=== PATIENT | female | born 1980 | race Caucasian/White ===

== ENCOUNTER 2023-01-12 05:31 | Emergency (ER) | payer OTHER, SELFPAY ==
--- NOTE | ~2023-01-12 | CT_ITS ---
CT of the Abdomen and Pelvis: Indication: Abdominal pain Technique: 2.5 mm axial scans were obtained through the abdomen and pelvis following intravenous adm inistration of 100 cc of Omnipaque 350. Dose reduction technique was used on this scan by utilizing a utomated exposure control and iterative reconstruction technique. The dose-length product (DLP) was 1 573.55 mGy-cm. Findings: Scans through the lung bases are unremarkable. The liver, spleen, pancreas, adrenals and kidneys are within normal limits. Cholecystectomy clips are present. No evidence of aortic aneurysm. No lymphadenopathy. No bowel obstruction or bowel wall thickening. There is no evidence to suggest acute appendicitis. Images through the pelvis were performed. Urinary bladder unremarkable. No adnexal mass seen. No asci sierra. Patient is post hysterectomy. Impression: No significant abnormalities seen. Reviewed, dictated and finalized at [facility]. Impression: No significant abnormalities seen.
[2023-01-12 05:34] VITALS: BP 155/86; PULSE 88; RESP 13; TEMP 36.2; O2SAT 100
--- NOTE | 2023-01-12 06:03 | ED.GENADULT ---
HPI - General Adult General Chief complaint: Abdominal Pain Stated complaint: stomach pain Time Seen by Provider: 01/12/23 05:55 History of Present Illness HPI narrative: 42 year old female history of cholecystectomy, hysterectomy presented with left lower quadrant abdominal pain. Per patient, for the past three days she has been having left lower quadrant abdominal, non radiating, associated with nausea and non bilious non bloody emesis. Denied dysuria, hematuria, fevers/chills, chest pain, shortness of breath. Past Medical History: HTN Past Surgical History: hysterectomy, cholecystectomy Medications: denied Allergies: no known drug allergies Related Data Allergies Allergy/AdvReac Type Severity Reaction Status Date / Time No Known Allergies Allergy Unverified 01/02/19 01:00 Review of Systems Review of Systems: See HPI Exam Narrative: General: Alert, calm and cooperative, no acute distress, phonating, sitting comfortably during visit HEENT: Pupils equal round and reactive to light, extra ocular movements intact, no conjunctival injection, head atraumatic, neck supple without meningismus Cardiovascular: Regular rate and rhythm, no visible jugular venous distension Respiratory: Lungs clear to auscultation bilaterally, no wheezing/rales/rhonchi Abdominal: soft, non-tender, non-distended, no guarding, no rebound/peritoneal signs, no costovertebral tenderness to palpation Back: no midline tenderness to palpation, no step offs Extremities: No edema, palpable peripheral pulses, warm, well perfused, no tenderness to bilateral calves Neurological: Alert, moving all extremities symmetrically, ambulating without deficit Course Vital Signs Vital signs: Vital Signs Temperature 97.2 F L 01/12/23 05:34 Pulse Rate 88 01/12/23 05:34 Respiratory Rate 13 01/12/23 05:34 Blood Pressure 155/86 H 01/12/23 05:34 Pulse Oximetry 100 01/12/23 05:34 Oxygen Delivery Room Air 01/12/23 05:34 Temperature 97.2 F L 01/12/23 05:34 Pulse Rate 88 01/12/23 05:34 Respiratory Rate 13 01/12/23 05:34 Blood Pressure 155/86 H 01/12/23 05:34 Pulse Oximetry 100 01/12/23 05:34 Oxygen Delivery Room Air 01/12/23 05:34 Medical Decision Making [facility] Narrative Medical decision making narrative: 42 year old female history of hysterectomy, cholecystectomy presented with left lower quadrant abdominal pain. Physical exam benign, abdomen soft and non tender vitals stable. Differential diagnosis includes but not limited to: SBO vs Diverticulitis vs pyelonephritis vs nephrolithiasis. Bloodwork analysis and CT abd/pelv ordered for further evaluation. Patient signed out to incoming provider. Current pending labs, imaging communicated. Vital Signs Vital Signs: Vital Signs Temperature 97.2 F L 01/12/23 05:34 Pulse Rate 88 01/12/23 05:34 Respiratory Rate 13 01/12/23 05:34 Blood Pressure 155/86 H 01/12/23 05:34 Pulse Oximetry 100 01/12/23 05:34 Oxygen Delivery Room Air 01/12/23 05:34 Temperature 97.2 F L 01/12/23 05:34 Pulse Rate 88 01/12/23 05:34 Respiratory Rate 13 01/12/23 05:34 Blood Pressure 155/86 H 01/12/23 05:34 Pulse Oximetry 100 01/12/23 05:34 Oxygen Delivery Room Air 01/12/23 05:34 Discharge Plan Discharge Instructions: Antibiotic Form Follow-up/Referrals: PHYSICIAN,DAIRY HUSBANDRY WORKER [Primary Care Provider] -
[2023-01-12] MEDS: ACETAMINOPHEN 500 MG TABLET 1000 MG PO (06:17)
[2023-01-12 06:18] LABS: Basophils Absolute Auto 0.1 K/mm3 (0.0-0.1); Basophils Percent Auto 0.4 % (0.2-1.2); Eosinophils Absolute Auto 0.1 K/mm3 (0-0.3); Eosinophils Percent Auto 0.9 % (0-4.4); Hematocrit 43.9 % (37.0-47.0); Hemoglobin 14.8 g/dL (12.0-15.0); Immature Granulocyte Absolute 0.05 K/mm3 (0.00-0.031); Immature Granulocyte Percent A 0.4 % (0-0.5); Lymphocytes Percent Auto 14.2 % (18.3-44.2); Mean Corpuscular HGB Conc 33.7 g/dl (32-36); Mean Corpuscular Hemoglobin 30.1 pg (26-34); Mean Corpuscular Volume 89.2 fl (80-100); Monocytes Absolute Auto 0.6 K/mm3 (0.1-0.6); Monocytes Percent Auto 4.3 % (2.6-8.5); Neutrophils Absolute Auto 10.6 K/mm3 (1.3-6.7); Neutrophils Percent Auto 79.8 % (45.5-73.1); Platelet Count Result 278 k/mm3 (150-375); Red Blood Count 4.92 M/mm3 (4.2-5.4); Red Cell Distribution Width 12.6 % (11.5-14.5); White Blood Count 13.3 K/mm3 (4.5-10.0)
[2023-01-12] MEDS: MAG HYDROX/AL HYDROX/SIMETH 30 ML UDC PO (06:19)
[2023-01-12] MEDS: ONDANSETRON INJ 4 MG/2 ML VIAL IV PUSH (06:19)
[2023-01-12] MEDS: SODIUM CHLORIDE 0.9% IV 1,000 ML 999 ML IV CONT (06:19)
[2023-01-12 06:31] LABS: Alanine Aminotransferase 30 U/L (6-35); Alkaline Phosphatase 94 U/L (38-126); Anion Gap 7 mmol/L (8-16); Aspartate Amino Transferase 27 U/L (14-36); Bilirubin,Total 0.7 mg/dL (0.2-1.3); Blood Urea Nitrogen 9 mg/dL (7-17); Calcium 9.2 mg/dL (8.4-10.2); Carbon Dioxide 28 mmol/L (22-30); Chloride 104 mmol/L (98-107); Estimated CRCL calculation 110 ml/min; Estimated Glomerular Filt Rate > 60; Glucose 128 mg/dL (65-110); Potassium 3.4 mmol/L (3.4-5.0); Sodium 139 mmol/L (137-145)
[2023-01-12 06:48] LABS: Appearance Urine Clear (Clear); Bacteria Urine None Seen /hpf; Bilirubin Urine Negative (Negative); Blood Urine 3+ (Negative); Color Urine Yellow (Yellow); Glucose Urine UA Negative (Negative); Ketones Urine Negative (Negative); Leukocyte Esterase Ur Trace LEU/UL (Negative); Nitrate Urine Negative (Negative); Non Pathogenic Casts 0-2; Protein Urine Negative (Negative); Specific Grav Ur 1.008 (1.001-1.035); Squamous Epithelial Cell Urine Occasional /hpf (Few); Urobilinogen Urine 0.2 mg/dL (<2.0)
--- NOTE | 2023-01-12 06:57 | PC.NURSE ---
patient reports not wanting Toradol until she sees how she reacts to the other medications.
[2023-01-12 06:59] LABS: Add Urine Microscopic? YES
[2023-01-12 07:26] VITALS: BP 142/79; PULSE 73; RESP 16; O2SAT 95
--- NOTE | 2023-01-12 07:26 | PC.NURSE ---
Patient report received from CARMEN Joseph. All questions answered and care of patient assumed.
[2023-01-12 08:45] VITALS: BP 144/79; PULSE 87; RESP 16; O2SAT 98
== END 2023-01-12 08:47 | disposition home or self-care (01) ==
PROVIDERS: Emergency Medicine; Emergency Provider Emergency Medicine
DX: R10.32 Left lower quadrant pain (principal); I10 Essential (primary) hypertension; Z90.49 Acquired absence of other specified parts of digestive tract; Z90.710 Acquired absence of both cervix and uterus
CPT/HCPCS: 36415; 74177; 80048; 80076; 81001; 81025; 85025; 87086; 87088; 96361; 96374; 99284; A9270; J2405; J7030; Q9967

== ENCOUNTER 2023-01-14 08:16 | Observation (INO) | payer OTHER, SELFPAY ==
[2023-01-14] VITALS (25 sets, daily range): BP systolic 104–168; BP diastolic 54–91; PULSE 59–99; RESP 12–21; TEMP 36.6–36.9; O2SAT 92–100; BMI 43.4
--- NOTE | ~2023-01-14 | CT_ITS ---
EXAMINATION: CT abdomen pelvis w con DATE: 01/14/2023 10:28 INDICATION: Left lower quadrant abdominal pain TECHNIQUE: Computed tomography (CT) of the abdomen and pelvis was performed with 100 CC Omnipaque 350 intravenous contrast. Automated exposure control and iterative reconstruction technique were employe d. Exam dose: 1471.60 mGy-cm total exam DLP. COMPARISON: 01/12/2023 CT abdomen pelvis FINDINGS: The lung bases are clear. Heart size is normal. No pericardial or pleural effusion. Status post cholecystectomy. The liver, spleen, pancreas, bile ducts and pancreatic duct are normal. Normal morphology of the adrenal glands. 6 mm right renal cyst. Mild left nephromegaly and hydronephrosis and pelviectasis secondary to 5.3 x 4.3 x 5.6 mm very proxi mal left ureteral calculus at upper L3 level. No other urinary tract calculus. The urinary bladder is unremarkable. Status post hysterectomy. Normal caliber of the abdominal aorta. No intraperitoneal or retroperitoneal or pelvic mass lesion or adenopathy or ascites. Mild colonic diverticulosis; no CT evidence of diverticulitis. Normal appendix. Very small fat-containing umbilical hernia. No suspicious osteolytic or osteoblastic lesions. IMPRESSION: 5.6 mm proximal left ureteral calculus with mild left hydronephrosis and nephromegaly Normal appendix Mild colonic diverticulosis 6 mm right renal cyst Status post cholecystectomy Status post hysterectomy Reviewed, dictated and finalized at [facility] Reviewed, dictated and finalized at [facility]. IMPRESSION: 5.6 mm proximal left ureteral calculus with mild left hydronephros is and nephromegaly Normal appendix Mild colonic diverticulosis 6 mm right renal cyst Status post cholecystectomy Status post hysterectomy
--- NOTE | ~2023-01-14 | XR_ITS ---
XR retrograde pyelo w/stent LT DATE: 01/14/2023 14:03 INDICATION: Proximal left ureteral calculus TECHNIQUE: 66.0 seconds fluoroscopy time 37.61 mGy 4. Spot C-arm images COMPARISON: 01/14/2023 CT abdomen pelvis FINDINGS: Retrograde pyelogram reveals blunting of the calyces of the left kidney due to mild hydrone phrosis. A left internal urinary stent displaced, the proximal pigtail apparently in the region of left renal pelvis, distal pigtail overlying the urinary bladder on the left. IMPRESSION: Mild left hydronephrosis Placement of left internal urinary stent Reviewed, dictated and finalized at [facility] Reviewed, dictated and finalized at [facility].
[2023-01-14 08:50] LABS: Basophils Absolute Auto 0.1 K/mm3 (0.0-0.1); Basophils Percent Auto 0.3 % (0.2-1.2); Eosinophils Absolute Auto 0.1 K/mm3 (0-0.3); Eosinophils Percent Auto 0.3 % (0-4.4); Hematocrit 44.9 % (37.0-47.0); Hemoglobin 14.9 g/dL (12.0-15.0); Immature Granulocyte Absolute 0.08 K/mm3 (0.00-0.031); Immature Granulocyte Percent A 0.4 % (0-0.5); Lymphocytes Absolute Auto 1.66 K/mm3 (0.9-3.2); Lymphocytes Percent Auto 8.8 % (18.3-44.2); Mean Corpuscular HGB Conc 33.2 g/dl (32-36); Mean Corpuscular Hemoglobin 30.1 pg (26-34); Mean Corpuscular Volume 90.7 fl (80-100); Mean Platelet Volume 10.8 fl (7.4-10.4); Monocytes Absolute Auto 0.8 K/mm3 (0.1-0.6); Monocytes Percent Auto 4.3 % (2.6-8.5); Neutrophils Absolute Auto 16.2 K/mm3 (1.3-6.7); Neutrophils Percent Auto 85.9 % (45.5-73.1); Platelet Count Result 305 k/mm3 (150-375); Red Blood Count 4.95 M/mm3 (4.2-5.4); Red Cell Distribution Width 12.7 % (11.5-14.5); White Blood Count 18.8 K/mm3 (4.5-10.0)
[2023-01-14 09:00] LABS: Appearance Urine Cloudy (Clear); Bacteria Urine None Seen /hpf; Bilirubin Urine Negative (Negative); Color Urine Yellow (Yellow); Glucose Urine UA Negative (Negative); Ketones Urine Negative (Negative); Leukocyte Esterase Ur Trace LEU/UL (Negative); Nitrate Urine Negative (Negative); Non Pathogenic Casts 0-2; Protein Urine Negative (Negative); Specific Grav Ur 1.008 (1.001-1.035); Squamous Epithelial Cell Urine None seen /hpf (Few); Urobilinogen Urine 0.2 mg/dL (<2.0); WBC Urine 0-5 /hpf
[2023-01-14 09:13] LABS: Add Urine Microscopic? YES
[2023-01-14 09:16] LABS: Alanine Aminotransferase 30 U/L (6-35); Albumin Level 4.3 g/dL (3.5-5.1); Alkaline Phosphatase 88 U/L (38-126); Anion Gap 6 mmol/L (8-16); Aspartate Amino Transferase 29 U/L (14-36); Bilirubin,Total 0.7 mg/dL (0.2-1.3); Blood Urea Nitrogen 13 mg/dL (7-17); Calcium 8.8 mg/dL (8.4-10.2); Carbon Dioxide 30 mmol/L (22-30); Chloride 100 mmol/L (98-107); Estimated CRCL calculation 88 ml/min; Estimated Glomerular Filt Rate > 60; Glucose 134 mg/dL (65-110); Lipase 80 U/L (23-300); Potassium 3.7 mmol/L (3.4-5.0); Sodium 136 mmol/L (137-145)
--- NOTE | 2023-01-14 09:55 | ED.GENADULT ---
HPI - General Adult General Chief complaint: Abdominal Pain <Jen Cancino October, Last Filed: 01/14/23 18:47> Stated complaint: abd pain and vomiting <Jen Cancino October, - Last Filed: 01/14/23 18:47> Time Seen by Provider: 01/14/23 08:47 <Jen Cancino October, - Last Filed: 01/14/23 18:47> History of Present Illness HPI narrative: Shirley Vega is a 42 y/o female with PMHx of HTN/ Hysterectomy/Cholecystectomy who presents today with complaints of left lower abdominal pain with nausea vomiting. Shirley explains this left lower abdominal pain started on Monday (5 days ago), she then had some nausea/vomiting on (2 days ago) she came here for evaluation had a thorough work up but everything came back normal and she felt a little better and was d/c home. She reports yesterday the pain continued to get worse in the left lower quadrant she tried just drinking water but that seemed to make her pain worse. She states she then tried to eat food and then reports vomiting 4 times today. Denies known fevers but reports having episodes of sweating. Denies dysuria/notable hematuria or any changes with urine. She reports she has had little bowel movements- her last was loose this AM and very little amount Patient is tearful and splinting her left lower quadrant. <Jen Cancino October, - Last Filed: 01/14/23 18:47> Related Data Home medications: Home Medications Medication Instructions Recorded Confirmed propranolol 20 mg tablet 20 mg PO DAILY 01/14/23 01/14/23 <Jen Cancino October, - Last Filed: 01/14/23 18:47> Allergies/adverse reactions: Allergies Allergy/AdvReac Type Severity Reaction Status Date / Time No Known Allergies Allergy Unverified 01/14/23 08:51 <Jen Cancino October, Last Filed: 01/14/23 18:47> Review of Systems Review of Systems: CONSTITUTIONAL: Denies fever, chills, reports of having intermittent sweats. EYES: Denies visual changes, redness, or discharge. ENT: Denies rhinorrhea, congestion, sore throat, or otalgia. CARDIOVASCULAR: Denies chest pain, palpitations, or edema. RESPIRATORY: Denies cough or dyspnea. GASTROINTESTINAL: Reports left lower abdominal pain, nausea with vomiting X4 one episode of diarrhea. GENITOURINARY: Denies dysuria or hematuria. SKIN: Denies rash or itching. MUSCULOSKELETAL: Denies back pain, joint pain, or myalgia. NEUROLOGIC: Denies headache, numbness, dizziness, or weakness. PSYCHIATRIC: Denies anxiety or depression. <Jen Puentes Last Filed: 01/14/23 18:47> [facility] Past Medical History Medical History: Medical History (Updated 01/14/23 @ 15:35 by Elle Meza PA-C) Hypertension Obstructive sleep apnea <Jen Cancino October, Last Filed: 01/14/23 18:47> Surgical History Surgical History: Surgical History (Updated 01/14/23 @ 15:33 by Elle Meza PA-C) History of section History of hemorrhoidectomy History of hysterectomy History of laparoscopic cholecystectomy <Jen Cancino October, Filed: 01/14/23 18:47> Family History Family History: Family History (Updated 01/14/23 @ 15:33 by Elle Meza PA-C) Other Family history non-contributory <Jen Cancino October, Last Filed: 01/14/23 18:47> Social History Social History: Social History (Updated 01/14/23 @ 15:34 by Elle Meza PA-C) Social History: Surrogate medical decision maker: Rowdy Red, father. Code status: Full code. Smoking status: Never smoker Second hand tobacco smoke exposure: No Alcohol intake: never Substance use: never Lack of Transportation: No Lack of Food: Never True Current Housing: I Have Housing Concerned About Future Housing: No Difficulty Paying Gas/Electric Bills: No Difficulty Paying for Meds: No Currently Unemployed: No Education: Decline to Answer Difficulty w/ Childcare or Family Care: No Spiritual care concerns: No <Jen Puentes Last Filed: 0
[2023-01-14] MEDS: SODIUM CHLORIDE 0.9% IV 1,000 ML 999 ML IV CONT (10:03)
[2023-01-14] MEDS: FAMOTIDINE 20 MG/2 ML VIAL IV PUSH (10:04)
[2023-01-14] MEDS: ONDANSETRON INJ 4 MG/2 ML VIAL IV PUSH (10:04)
[2023-01-14] MEDS: DICYCLOMINE HCL INJ 20 MG/2 ML VIAL IM (10:04)
[2023-01-14] MEDS: KETOROLAC 30 MG/ML VIAL (*BKC) IV PUSH (10:04)
[2023-01-14] MEDS: MORPHINE SULFATE (*CRX) 4 MG/ML INJ 2 MG IV PUSH (10:05)
[2023-01-14 10:17] LABS: Lactic Acid Reflex 1.4 mmol/L (0.7-2.0)
[2023-01-14] MEDS: TAMSULOSIN HCL 0.4 MG CAPSULE PO (11:18)
--- NOTE | 2023-01-14 13:05 | WPDANESEPP ---
Anes - Eval Pre Procedure Procedure: Cystoureteroscopy, Left stent placement, left retrograde pyelogram Date/Time: 01/14/23 13:05 Surgeon: Dr. Knox Preop Diagnosis: Left Hydronephrosis, left ureteral calculus Pre Op Diagnosis: abd pain and vomiting Patient Data Age: 42 Gender: F Height: 1.63 m Weight: 114.8 kg Last Vital Signs Temp 97.8 F 01/14/23 08:18 Pulse 76 01/14/23 08:55 Resp 19 01/14/23 08:55 BP 154/87 H 01/14/23 08:55 Pulse Ox 99 01/14/23 08:55 O2 Del Method Room Air 01/14/23 08:18 Allergies Allergy/AdvReac Type Severity Reaction Status Date / Time No Known Allergies Allergy Unverified 01/14/23 08:51 Home Medications Medication Instructions Recorded Confirmed Type dicyclomine 20 mg tablet 20 mg PO QID #20 tabs 01/12/23 Rx ondansetron HCl 4 mg tablet 4 mg PO Q4H 3 doses #20 tabs 01/12/23 Rx Laboratory Tests 01/14/23 01/14/23 08:29 09:59 WBC 18.8 H K/mm3 (4.5-10.0) RBC 4.95 M/mm3 (4.2-5.4) Hgb 14.9 g/dL (12.0-15.0) Hct 44.9 % (37.0-47.0) MCV 90.7 fl (80-100) MCH 30.1 pg (26-34) MCHC 33.2 g/dl (32-36) RDW 12.7 % (11.5-14.5) Plt Count 305 k/mm3 (150-375) MPV 10.8 H fl (7.4-10.4) Immature Gran % (Auto) 0.4 % (0-0.5) Neut % (Auto) 85.9 H % (45.5-73.1) Lymph % (Auto) 8.8 L % (18.3-44.2) [place] % (Auto) 4.3 % (2.6-8.5) Eos % (Auto) 0.3 % (0-4.4) Baso % (Auto) 0.3 % (0.2-1.2) Lymph # (Auto) 1.66 K/mm3 (0.9-3.2) [place] # (Auto) 0.8 H K/mm3 (0.1-0.6) Eos # (Auto) 0.1 K/mm3 (0-0.3) Baso # (Auto) 0.1 K/mm3 (0.0-0.1) Abs Immat Gran (auto) 0.08 H K/mm3 (0.00-0.031) Absolute Neuts (auto) 16.2 H K/mm3 (1.3-6.7) Absolute Nucleated RBC 0.0 K/mm3 (0.0-0.012) Nucleated RBC % 0.0 % (0.0-0.2) Sodium 136 L mmol/L (137-145) Potassium 3.7 mmol/L (3.4-5.0) Chloride 100 mmol/L (98-107) Carbon Dioxide 30 mmol/L (22-30) Anion Gap 6 L mmol/L (8-16) BUN 13 mg/dL (7-17) Creatinine 0.90 mg/dL (0.7-1.0) Estim Creat Clear Calc 88 ml/min Estimated GFR > 60 (59 - ) Glucose 134 H mg/dL (65-110) Lactic Acid 1.4 mmol/L (0.7-2.0) Calcium 8.8 mg/dL (8.4-10.2) Total Bilirubin 0.7 mg/dL (0.2-1.3) AST 29 U/L (14-36) ALT 30 U/L (6-35) Alkaline Phosphatase 88 U/L (38-126) Total Protein 8.0 g/dL (6.3-8.2) Albumin 4.3 g/dL (3.5-5.1) Lipase 80 U/L (23-300) Urine Color Yellow (Yellow) Urine Appearance Cloudy H (Clear) Urine pH 8.0 (5.0-9.0) Ur Specific [place] 1.008 (1.001-1.035) Urine Protein Negative mg/dL (Negative) Urine Glucose (UA) Negative mg/dL (Negative) Urine Ketones Negative mg/dL (Negative) Ur Blood (Man) Non-hemolyzed trace (Negative) Urine Nitrate Negative (Negative) Urine Bilirubin Negative (Negative) Urine Urobilinogen 0.2 mg/dL (<2.0) Leukocyte Esterase Rfl Trace H JODIE/UL (Negative) Urine RBC 6-10 H /hpf (0-2) Urine WBC 0-5 /hpf Ur Squamous Epith Cells None seen /hpf (Few) Urine Bacteria None seen /hpf Urine Casts 0-2 Patient hx anesthesia problems: none Family hx anesthesia problems: none Results Review: All pre-operative results and documents have been reviewed as part of the pre-operative evaluation. [facility] Past Medical History Medical History (Updated 01/14/23 @ 13:09 by Jo Fairbanks CRNA) Hypertension Surgical History Surgical History (Updated 01/14/23 @ 13:09 by Jo Fairbanks CRNA) H/O: hysterectomy Hx laparoscopic cholecystectomy Exam Day of Procedure 01/14/23 13:05 Patient weight: morbidly obese (BMI 43.4)
--- NOTE | 2023-01-14 13:13 | WPDHPUPDATE1 ---
History and Physical Update Update Date/Time: 01/14/23 13:13 History and Physical has been reviewed, including an updated exam of the patient. There are NO changes in the patient's condition. Risks, benefits, and alternatives have been discussed and questions answered. Patient agrees to proceed with procedure.
--- NOTE | 2023-01-14 13:13 | WPDURCON ---
Assessment and Plan Assessment and plan (1) Ureterolithiasis: Code(s): N20.1 - Calculus of ureter Status: Acute Assessment and Plan: we reviewed management options for ureter stones with observation, trial of passe, URS and ESWL, we discussed placement of stent to temporize colic. we reviewed the pertinent risks/benefits/alternatives/nature of the procedure how its performed and potential complications in detail -pt aware of stent relate dpain and irritative voiding symptos for stent she will need definitive tx with ESWL as outpt -pt understands stent is temporary and we are not treating stone today given elevated WBC. pt understands stent will need to be removed in near future otherwise it can cause permanent kidney injury. Furthermore we reviewed risks of ureteral injury/inability to place sten and need for IR neph tube. Additionally pt aware of anesthesia/positioning complications of DVT/PE/UT/stroke/ or permanent disability She elects to proceed all ? answered in laymans terms. (2) Hydronephrosis: Qualifiers: Hydronephrosis type: unspecified Qualified Code(s): N13.30 - Unspecified hydronephrosis Code(s): N13.30 - Unspecified hydronephrosis Status: Acute Urology Consult Note HPI Date Seen: 01/14/23 Primary Care Provider: BAKERY MACHINE MECHANIC PHYSICIAN Consult Narrative Narrative: Shirley Vega is a 42 year old female who presented to the ER with worsening left flank pain. Patient was seen in ER 2 days prior for similar. CT scan shpows 5 mm left proximal ureter stone with hydro. Denies fevers/chills. + nausea and vomitting. WBC 18. 1 prior stone which she passed spontaneously years ago. last ate prior to midnight. denies GH or dysuria. Review of Systems Constitutional: Constitutional: Reports as per HPI Eyes: Eyes: Reports no additional eye complaints ENT: Reports system reviewed and no additional complaints, except as documented Cardiovascular: Cardiovascular: Reports no additional cardiovascular complaints and Denies chest pain Respiratory: Respiratory: Denies dyspnea Gastrointestinal: Gastrointestinal: Reports abdominal pain Genitourinary: Genitourinary: Reports no additional female genitourinary complaints and Reports as per HPI Musculoskeletal: Musculoskeletal: Reports no additional musculoskeletal complaints Integumentary/Breasts: Skin/Breast: Reports system reviewed and no additional complaints, except as docu Neurologic: Reports system reviewed and no additional complaints, except as documented Psychiatric: Psychiatric: Reports no additional psychiatric complaints [facility] Past Medical History Medical History (Updated 01/14/23 @ 13:09 by Jo Fairbanks CRNA) Hypertension Surgical History Surgical History (Updated 01/14/23 @ 13:09 by Jo Fairbanks CRNA) H/O: hysterectomy Hx laparoscopic cholecystectomy Meds Home Medications and Allergies Home Medications Medication Instructions Recorded Confirmed Type dicyclomine 20 mg tablet 20 mg PO QID #20 tabs 01/12/23 Rx ondansetron HCl 4 mg tablet 4 mg PO Q4H 3 doses #20 tabs 01/12/23 Rx Allergies Allergy/AdvReac Type Severity Reaction Status Date / Time No Known Allergies Allergy Unverified 01/14/23 08:51 Vital Signs Vital Signs - 24 hr 01/14/23 08:18 01/14/23 08:55 Temperature 36.6 C Pulse Rate 76 76 Respiratory Rate 16 19 Blood Pressure 151/84 H 154/87 H Pulse Oximetry 100 99 Oxygen Delivery Room Air Exam Const: General: uncomfortable HENMT: Face/Nose/Sinus: Normal nares present Eyes: General: appearance normal, both eyes and all related structures Resp: Effort & Inspection: normal respiratory effort Cardio: Rate: regular rate Rhythm: regular rhythm GI: Inspection: non-distended GI Palp: Yes Soft to palpation and No Tenderness to palpation present (GI) Other: mild left CVA TTP Skin: General skin exam: normal color and no rashes or
--- NOTE | 2023-01-14 13:26 | WPDANESEPPF ---
Anes - Initial Pre Proc Eval Procedure: Operation Date: 01/14/23 14:30 Proposed Procedures p Cysto, RPG, Stone Ext, Stent Placement(Left) - Joe Knox MD Date/Time: 01/14/23 13:26 Pre Op Diagnosis: abd pain and vomiting Patient Data Age: 42 Gender: F Height: 1.63 m Weight: 114.8 kg Last Vital Signs Temp 36.6 C 01/14/23 08:18 Pulse 72 01/14/23 13:16 Resp 18 01/14/23 13:16 BP 140/69 01/14/23 13:16 Pulse Ox 98 01/14/23 13:16 O2 Del Method Room Air 01/14/23 08:18 Allergies Allergy/AdvReac Type Severity Reaction Status Date / Time No Known Allergies Allergy Unverified 01/14/23 08:51 Home Medications Medication Instructions Recorded Confirmed Type dicyclomine 20 mg tablet 20 mg PO QID #20 tabs 01/12/23 Rx ondansetron HCl 4 mg tablet 4 mg PO Q4H 3 doses #20 tabs 01/12/23 Rx Laboratory Tests 01/14/23 01/14/23 08:29 09:59 WBC 18.8 H K/mm3 (4.5-10.0) RBC 4.95 M/mm3 (4.2-5.4) Hgb 14.9 g/dL (12.0-15.0) Hct 44.9 % (37.0-47.0) MCV 90.7 fl (80-100) MCH 30.1 pg (26-34) MCHC 33.2 g/dl (32-36) RDW 12.7 % (11.5-14.5) Plt Count 305 k/mm3 (150-375) MPV 10.8 H fl (7.4-10.4) Immature Gran % (Auto) 0.4 % (0-0.5) Neut % (Auto) 85.9 H % (45.5-73.1) Lymph % (Auto) 8.8 L % (18.3-44.2) [place] % (Auto) 4.3 % (2.6-8.5) Eos % (Auto) 0.3 % (0-4.4) Baso % (Auto) 0.3 % (0.2-1.2) Lymph # (Auto) 1.66 K/mm3 (0.9-3.2) [place] # (Auto) 0.8 H K/mm3 (0.1-0.6) Eos # (Auto) 0.1 K/mm3 (0-0.3) Baso # (Auto) 0.1 K/mm3 (0.0-0.1) Abs Immat Gran (auto) 0.08 H K/mm3 (0.00-0.031) Absolute Neuts (auto) 16.2 H K/mm3 (1.3-6.7) Absolute Nucleated RBC 0.0 K/mm3 (0.0-0.012) Nucleated RBC % 0.0 % (0.0-0.2) Sodium 136 L mmol/L (137-145) Potassium 3.7 mmol/L (3.4-5.0) Chloride 100 mmol/L (98-107) Carbon Dioxide 30 mmol/L (22-30) Anion Gap 6 L mmol/L (8-16) BUN 13 mg/dL (7-17) Creatinine 0.90 mg/dL (0.7-1.0) Estim Creat Clear Calc 88 ml/min Estimated GFR > 60 (59 - ) Glucose 134 H mg/dL (65-110) Lactic Acid 1.4 mmol/L (0.7-2.0) Calcium 8.8 mg/dL (8.4-10.2) Total Bilirubin 0.7 mg/dL (0.2-1.3) AST 29 U/L (14-36) ALT 30 U/L (6-35) Alkaline Phosphatase 88 U/L (38-126) Total Protein 8.0 g/dL (6.3-8.2) Albumin 4.3 g/dL (3.5-5.1) Lipase 80 U/L (23-300) Urine Color Yellow (Yellow) Urine Appearance Cloudy H (Clear) Urine pH 8.0 (5.0-9.0) Ur Specific [place] 1.008 (1.001-1.035) Urine Protein Negative mg/dL (Negative) Urine Glucose (UA) Negative mg/dL (Negative) Urine Ketones Negative mg/dL (Negative) Ur Blood (Man) Non-hemolyzed trace (Negative) Urine Nitrate Negative (Negative) Urine Bilirubin Negative (Negative) Urine Urobilinogen 0.2 mg/dL (<2.0) Leukocyte Esterase Rfl Trace H JODIE/UL (Negative) Urine RBC 6-10 H /hpf (0-2) Urine WBC 0-5 /hpf Ur Squamous Epith Cells None seen /hpf (Few) Urine Bacteria None seen /hpf Urine Casts 0-2 Patient hx anesthesia problems: none Family hx anesthesia problems: none Results Review: All pre-operative results and documents have been reviewed as part of the pre-operative evaluation. [facility] Past Medical History Medical History (Updated 01/14/23 @ 13:27 by Joe Lombardi MD) Hypertension JO-ANN (obstructive sleep apnea) Surgical History Surgical History H/O: hysterectomy Hx laparoscopic cholecystectomy Anes - Eval Final PreProcedure Day of Procedure 01/14/23 13:26 Patient weight: morbidly
--- NOTE | 2023-01-14 14:06 | W.PM.PROC2 ---
Procedure Note - Detailed Date of Procedure 01/14/23 Pre-op Diagnosis abd pain and vomiting left ureter stone Post-op Diagnosis Same Procedure Performed cystoscopy , left retrograde pyelogram, left ureteral stent placement Surgeon Joe Knox MD Anesthesia General Indications left ureter stone, colic Findings expected left proximal ureter stone Description of Procedure Description of procedure: Patient was brought back to the operating room, she was given a general anesthetic via LMA. She was prepped and draped in standard fashion in the dorsal lithotomy position with betadine scrub to the genitalia. Care was taken to not hyperflex or hyperextend any extremity all bony prominences thoroughly padded. She received IV abx ( rocephin in the ER). After appropriate timeout and radiologic films were displayed, a 22 Fr cystoscope was inserted into the bladder, bladder was grossly normal with no evidence of papillary tumor, lesion or mass. She has single orthotopic ureteral orifices effluxing clear yellow urine. sports medicine specialist fluoroscopy revealed contrast from CT in bladder and collecting systems. A sensor wire was inserted up the left uo under fluoroscopy and advanced past the stone into the expected renal pelvis. A 5 Fr open ended catheter was placed and retrograde pyelography was performed which revealed stone in proximal left ureter with mild hydronephrosis and hydroureter to the level of the stone. A 4.8 Fr variable length stent was then deployed over the wire, good curl was seen fluoroscopically in the kidney and both fluoroscopically and endoscopically in the bladder, bladder was drained, all instruments and wires were removed, and patient was awoken and transferred to PACU in stable condition. I discussed findings with over the phone. She will be admitted to hospital service for postoperative monitoring. Implants left 4.8 Fr variable length double J stent Drains No Packing No Pathology None sent Complications No immediate complications Condition Stable Disposition PACU
[2023-01-14] MEDS: LACTATED RINGERS 1,000 ML 30 ML IV CONT ×2 (14:09→14:41)
--- NOTE | 2023-01-14 15:27 | PM.IMHP ---
H&P: HPI History of Present Illness Date/Time: 01/14/23 17:10 Chief Complaint: Abdominal pain and vomiting. Narrative: This is a 42-year-old female with history of kidney stones, hypertension, cholecystectomy, and hysterectomy who presented to the emergency department via private vehicle from home for evaluation of abdominal pain and vomiting. The patient provides the following history. She has not felt well for going on 5 days with nearly constant burning pain in the left low back and flank. At times the pain intensifies and is associated with nausea and nonbilious and nonbloody emesis. She was previously evaluated for these symptoms on the morning of 01/12/2023. Aside from a white blood cell count of 13.3 her labs were pretty unremarkable. Urine was significant for 3+ blood however CT of the abdomen and pelvis did not show any acute findings. She was discharged home and she was feeling a bit better on discharge. Today however the pain returned and she has now had sharp and shooting discomfort into the left flank and groin in addition to nausea and vomiting. CT of the abdomen and pelvis today showed a 5 mm proximal left ureteral calculus with mild hydronephrosis. She is now status post cystoscopy with left ureteral stent placement per Dr. Rivers. Since the procedure she has had some mild dysuria and hematuria but nothing significant. Her pain has improved. She denies fever, chills, sweats, nausea, and vomiting since the procedure. Review of Systems Review of Systems: Twelve systems were reviewed. No recent cold or flu symptoms. She has sleep apnea but is intolerant to CPAP. She admits that she does not sleep well at nighttime but she denies paroxysmal nocturnal dyspnea. Except as documented, all other systems were reviewed and are negative. [facility] Past Medical History Medical History (Updated 01/14/23 @ 20:59 by Elle Meza PA-C) Hypertension Kidney stones Obstructive sleep apnea Surgical History Surgical History (Updated 01/14/23 @ 15:33 by Elle Meza PA-C) History of section History of hemorrhoidectomy History of hysterectomy History of laparoscopic cholecystectomy Family History Family History (Updated 01/14/23 @ 15:33 by Elle Meza PA-C) Other Family history non-contributory Social History Social History (Updated 01/14/23 @ 15:34 by Elle Meza PA-C) Social History: Surrogate medical decision maker: Rowdy Red, father. Code status: Full code. Smoking status: Never smoker Second hand tobacco smoke exposure: No Alcohol intake: never Substance use: never Lack of Transportation: No Lack of Food: Never True Current Housing: I Have Housing Concerned About Future Housing: No Difficulty Paying Gas/Electric Bills: No Difficulty Paying for Meds: No Currently Unemployed: No Education: Decline to Answer Difficulty w/ Childcare or Family Care: No Spiritual care concerns: No Meds Home Medications and Allergies Home Medications Medication Instructions Recorded Confirmed Type dicyclomine 20 mg tablet 20 mg PO QID #20 tabs 01/12/23 01/14/23 Rx ondansetron HCl 4 mg tablet 4 mg PO Q4H 3 doses #20 tabs 01/12/23 01/14/23 Rx propranolol 20 mg tablet 20 mg PO DAILY 01/14/23 01/14/23 History Allergies Allergy/AdvReac Type Severity Reaction Status Date / Time No Known Allergies Allergy Unverified 01/14/23 08:51 Vital Signs Vital Signs - 24 hr 01/14/23 08:18 01/14/23 08:55 01/14/23 13:16 Temperature 97.8 F Pulse Rate 76 76 72 Respiratory Rate 16 19 18 Blood Pressure 151/84 H 154/87 H 140/69 Pulse Oximetry 100 99 98 Oxygen Delivery Room Air Oxygen Flow Rate 01/14/23 09:16 01/14/23 09:31 01/14/23 10:46 Temperature Pulse Rate Respiratory Rate Blood Pressure 168/91 H 160/86 H 126/54 L Pulse Oximetry Oxygen Delivery Oxygen Flow Rate 01/14/23 11:01 01/14/23 11:31 01/14/23 11:48 Temperature
[2023-01-14] MEDS: LACTATED RINGERS 1,000 ML 100 ML IV CONT (16:15)
[2023-01-14] MEDS: oxyCODONE HCL (*CRX) 5 MG TAB IR PO (21:16)
[2023-01-15] MEDS: LACTATED RINGERS 1,000 ML 100 ML IV CONT (02:42)
[2023-01-15 03:14] VITALS: BP 156/76; PULSE 54; RESP 16; TEMP 36.6; O2SAT 98
[2023-01-15 06:42] LABS: Hematocrit 39.3 % (37.0-47.0); Hemoglobin 13.2 g/dL (12.0-15.0); Mean Corpuscular HGB Conc 33.6 g/dl (32-36); Mean Corpuscular Hemoglobin 30.4 pg (26-34); Mean Corpuscular Volume 90.6 fl (80-100); Mean Platelet Volume 11.1 fl (7.4-10.4); Platelet Count Result 287 k/mm3 (150-375); Red Blood Count 4.34 M/mm3 (4.2-5.4); Red Cell Distribution Width 12.6 % (11.5-14.5)
[2023-01-15 07:24] LABS: Anion Gap 5 mmol/L (8-16); Blood Urea Nitrogen 12 mg/dL (7-17); Carbon Dioxide 28 mmol/L (22-30); Chloride 103 mmol/L (98-107); Estimated CRCL calculation 112 ml/min; Estimated Glomerular Filt Rate > 60; Glucose 120 mg/dL (65-110); Potassium 3.8 mmol/L (3.4-5.0); Sodium 136 mmol/L (137-145)
[2023-01-15] MEDS: MORPHINE SULFATE (*CRX) 2 MG/ML INJ IV PUSH (07:34)
[2023-01-15 07:36] VITALS: PULSE 90
[2023-01-15] MEDS: PROPRANOLOL HCL 20 MG TABLET PO (07:36)
[2023-01-15 08:00] VITALS: O2SAT 98
[2023-01-15 08:09] VITALS: BP 158/82; PULSE 57; RESP 18; TEMP 36; O2SAT 98
--- NOTE | 2023-01-15 08:25 | PM.IMPN ---
Progress Note: A&P Assessment and Plan (1) Ureterolithiasis: Code(s): N20.1 - Calculus of ureter Status: Acute Assessment and Plan: 5 mm proximal left ureteral stone Status post cystoscopy with stent placement Needs ESWL as an outpatient IV fluids and IV ceftriaxone Leukocytosis is improving 14 today down from 18 Urology following (2) Hydronephrosis: Qualifiers: Hydronephrosis type: unspecified Qualified Code(s): N13.30 - Unspecified hydronephrosis Code(s): N13.30 - Unspecified hydronephrosis Status: Acute Assessment and Plan: See above (3) Hyperglycemia: Code(s): R73.9 - Hyperglycemia, unspecified Status: Acute Assessment and Plan: Blood sugars controlled. Point of care testing ranging from 120s 130s. Does not appear to be on oral anti diabetics home. Hemoglobin A1c pending (4) Hypertension: Code(s): I10 - Essential (primary) hypertension Status: Acute Assessment and Plan: Controlled with propranolol Blood pressures are reviewed and are stable but mildly elevated systolic in the 150s. Could be pain driven Plan If pain is controlled and she is tolerating a diet then we can discharge her home with antibiotics and urology follow-up Subjective Date/time seen: 01/15/23 08:25 Interval history: Chief Complaint: Abdominal pain and vomiting. Narrative: This is a 42-year-old female with history of kidney stones, hypertension, cholecystectomy, and hysterectomy who presented to the emergency department via private vehicle from home for evaluation of abdominal pain and vomiting.? The patient provides the following history. She has not felt well for going on 5 days with nearly constant burning pain in the left low back and flank. At times the pain intensifies and is associated with nausea and nonbilious and nonbloody emesis. She was previously evaluated for these symptoms on the morning of 01/12/2023. Aside from a white blood cell count of 13.3 her labs were pretty unremarkable. Urine was significant for 3+ blood however CT of the abdomen and pelvis did not show any acute findings. She was discharged home and she was feeling a bit better on discharge. Today however the pain returned and she has now had sharp and shooting discomfort into the left flank and groin in addition to nausea and vomiting. CT of the abdomen and pelvis today showed a 5 mm proximal left ureteral calculus with mild hydronephrosis. She is now status post cystoscopy with left ureteral stent placement per Dr. Rivers. Since the procedure she has had some mild dysuria and hematuria but nothing significant. Her pain has improved. She denies fever, chills, sweats, nausea, and vomiting since the procedure. Exam Narrative: General: A well-developed, nontoxic-appearing female sitting up in bed. Weight: 114.8 kg. BMI: 43.4. HEENT: PERRL, EOMI. Sclera anicteric. Moist mucous membranes. Oropharynx is crowded. Upper and lower dentures in place. Neck: Supple. Respiratory: Lungs are clear to auscultation bilaterally. Cardiovascular: Regular rate and rhythm with S1-S2. Gastrointestinal: Abdomen is soft, obese, and nondistended with positive bowel sounds. She is a bit tender to palpation over the left flank. No guarding or rebound tenderness. Skin: Warm and dry. No rash or lesions on limited exam. Extremities: No cyanosis, clubbing, or edema. Radial and pedal pulses intact. Neurological: Alert. Cranial nerves 2-12 are grossly intact. No gross focal deficits to casual conversation. Psychiatric: Pleasant and cooperative with normal mood and affect. Judgment and insight intact. Objective Data Vital Signs Vital Signs: Vital Signs - 24 hr 01/14/23 08:55 01/14/23 13:16 01/14/23 09:16 Temperature Pulse Rate 76 72 Respiratory Rate 19 18 Blood Pressure 154/87 H 140/69 168/91 H Pulse Oximetry 99 98 Oxygen Delivery Oxygen Flow Rate 01/14/23 09:31 01/14/23
[2023-01-15 10:33] LABS: Hemoglobin A1C 5.4 % (<5.7)
--- NOTE | 2023-01-15 11:41 | WPDUROPN2 ---
Progress Note: A&P Assessment and Plan (1) Ureterolithiasis: Code(s): N20.1 - Calculus of ureter Status: Acute Assessment and Plan: POD#1 s/p left RPG/stent placement - doing well, wbc decreasing, Cr normal pt understands stent is temporary and needs to followup to scheduled ESWL and stent removal -ok to discharge on abx and schedule outpt followup in 1-[address] Renee or Kasie to schedule ESWL + stent removal (2) Hydronephrosis: Qualifiers: Hydronephrosis type: unspecified Qualified Code(s): N13.30 - Unspecified hydronephrosis Code(s): N13.30 - Unspecified hydronephrosis Status: Acute Subjective Subjective Date/Time Seen: 01/15/23 11:41 Interval history: doing well, pain much improved. No N/V/Cp/SOB. NAEO Review of Systems Constitutional: Constitutional: Reports no additional constitutional complaints Eyes: Eyes: Reports no additional eye complaints ENT: Reports system reviewed and no additional complaints, except as documented Cardiovascular: Cardiovascular: Reports no additional cardiovascular complaints Respiratory: Respiratory: Reports no additional respiratory complaints Gastrointestinal: Gastrointestinal: Reports no additional gastrointestinal complaints Genitourinary: Genitourinary: Reports no additional female genitourinary complaints Neurologic: Reports system reviewed and no additional complaints, except as documented Exam Const: General: comfortable and no acute distress HENMT: Face/Nose/Sinus: Normal nares present Eyes: General: appearance normal, both eyes and all related structures Resp: Effort & Inspection: normal respiratory effort Auscultation: no wheezes GI: Inspection: non-distended GI Palp: Yes Soft to palpation and No Guarding due to palpation present (GI) Extrem: General: normal to inspection Objective Data Vital Signs Vital Signs: Vital Signs - 24 hr 01/14/23 13:16 01/14/23 11:48 01/14/23 12:01 Temperature Pulse Rate 72 Respiratory Rate 18 Blood Pressure 140/69 133/70 129/74 Pulse Oximetry 98 Oxygen Delivery Oxygen Flow Rate 01/14/23 12:31 01/14/23 12:46 01/14/23 13:01 Temperature Pulse Rate Respiratory Rate Blood Pressure 124/73 135/76 137/68 Pulse Oximetry Oxygen Delivery Oxygen Flow Rate 01/14/23 14:09 01/14/23 14:15 01/14/23 14:30 Temperature 36.9 C Pulse Rate 99 88 87 Respiratory Rate 21 H 16 18 Blood Pressure 104/61 108/58 L 107/59 L Pulse Oximetry 97 97 100 Oxygen Delivery Simple Face Mask Simple Face Mask Simple Face Mask Oxygen Flow Rate 6 6 6 01/14/23 14:45 01/14/23 15:00 01/14/23 15:15 Temperature Pulse Rate 91 63 59 L Respiratory Rate 18 12 17 Blood Pressure 114/62 111/64 111/71 Pulse Oximetry 95 99 95 Oxygen Delivery Room Air Room Air Room Air Oxygen Flow Rate 01/14/23 15:50 01/14/23 17:13 01/14/23 16:05 Temperature 36.9 C 36.9 C Pulse Rate 64 66 Respiratory Rate 18 18 Blood Pressure 142/78 H 132/69 Pulse Oximetry 95 95 94 Oxygen Delivery Room Air Oxygen Flow Rate 01/14/23 17:35 01/14/23 19:33 01/14/23 23:14 Temperature 36.9 C 36.9 C 36.6 C Pulse Rate 83 87 81 Respiratory Rate 18 18 16 Blood Pressure 141/60 H 124/61 145/73 H Pulse Oximetry 96 92 96 Oxygen Delivery Oxygen Flow Rate 01/15/23 03:14 01/15/23 07:36 01/15/23 08:00 Temperature 36.6 C Pulse Rate 54 L 90 Respiratory Rate 16 Blood Pressure 156/76 H Pulse Oximetry 98 98 Oxygen Delivery Room Air Oxygen Flow Rate 01/15/23 08:09 Temperature 36.0 C L Pulse Rate 57 L Respiratory Rate 18 Blood Pressure 158/82 H Pulse Oximetry 98 Oxygen Delivery Oxygen Flow Rate Intake/Output Intake/Output: Intake & Output 01/12/23 01/13/23 01/14/23 01/15/23 23:59 23:59 23:59 23:59 Intake Total 2200 1236 Output Total 300 800 Balance 1900 436 Meds/Results Medications: Active Medications Generic Name
[2023-01-15 14:00] VITALS: BP 110/52; PULSE 76; RESP 18; TEMP 36; O2SAT 95
--- NOTE | 2023-01-15 14:45 | PM.DS ---
DS: Admitting Diagnosis Discharge Date January 15Monday Admitting Diagnosis Hydronephrosis DS: Discharge Diagnosis Discharge Diagnosis (1) Ureterolithiasis: Code(s): N20.1 - Calculus of ureter Status: Acute Assessment and Plan: 5 mm proximal left ureteral stone Status post cystoscopy with stent placement Needs ESWL as an outpatient IV fluids and IV ceftriaxone Leukocytosis is improving 14 today down from 18 Urology following (2) Hydronephrosis: Qualifiers: Hydronephrosis type: unspecified Qualified Code(s): N13.30 - Unspecified hydronephrosis Code(s): N13.30 - Unspecified hydronephrosis Status: Acute Assessment and Plan: See above (3) Hyperglycemia: Code(s): R73.9 - Hyperglycemia, unspecified Status: Acute Assessment and Plan: Blood sugars controlled. Point of care testing ranging from 120s 130s. Does not appear to be on oral anti diabetics home. Hemoglobin A1c pending (4) Hypertension: Code(s): I10 - Essential (primary) hypertension Status: Acute Assessment and Plan: Controlled with propranolol Blood pressures are reviewed and are stable but mildly elevated systolic in the 150s. Could be pain driven Plan If pain is controlled and she is tolerating a diet then we can discharge her home with antibiotics and urology follow-up DS: Summary Hospital Course Hospital Course: Narrative: This is a 42-year-old female with history of kidney stones, hypertension, cholecystectomy, and hysterectomy who presented to the emergency department via private vehicle from home for evaluation of abdominal pain and vomiting.? The patient provides the following history. She has not felt well for going on 5 days with nearly constant burning pain in the left low back and flank. At times the pain intensifies and is associated with nausea and nonbilious and nonbloody emesis. She was previously evaluated for these symptoms on the morning of 01/12/2023. Aside from a white blood cell count of 13.3 her labs were pretty unremarkable. Urine was significant for 3+ blood however CT of the abdomen and pelvis did not show any acute findings. She was discharged home and she was feeling a bit better on discharge. Today however the pain returned and she has now had sharp and shooting discomfort into the left flank and groin in addition to nausea and vomiting. CT of the abdomen and pelvis today showed a 5 mm proximal left ureteral calculus with mild hydronephrosis. She is now status post cystoscopy with left ureteral stent placement per Dr. Rivers. Since the procedure she has had some mild dysuria and hematuria but nothing significant. Her pain has improved. She denies fever, chills, sweats, nausea, and vomiting since the procedure. 01/15: Shirley is seen resting in bed today. She says she is feeling better because she thinks she just passed part of her stone. Nursing is collected and sent off to lab. She is anxious to leave today now that her pain is improved. She says she started new job tomorrow and she does not miss the 1st day. Urology is fine with her discharging with antibiotics and a 1 week follow-up for stent removal. I spoke with her about needing a potential lithotripsy procedure done as an outpatient. At this time she has no questions or concerns. Her lab work is resolving and her vitals are stable, medically she is ready for discharge. Time Spent with Patient Time attestation: Total time spent providing and/or coordinating discharge services:45 Exam Narrative: General: A well-developed, nontoxic-appearing female sitting up in bed. Weight: 114.8 kg. BMI: 43.4. HEENT: PERRL, EOMI. Sclera anicteric. Moist mucous membranes. Oropharynx is crowded. Upper and lower dentures in place. Neck: Supple. Respiratory: Lungs are clear to auscultation bilaterally. Cardiovascular: Regular rate and rhythm with S1-S2. Gastrointestinal: Abdomen is soft, obese, and nondiste
== END 2023-01-15 16:00 | disposition home or self-care (01) ==
LOC: ANHED 14:08 → ANH3MEDSUR 01-15 14:55
PROVIDERS: Emergency Medicine; Physician Assistant; Urology; Admitting Provider Chiropractor; Emergency Provider Nurse Practitioner Family; Visit Provider Student in an Organized Health Care Education/Training Program
PROC: (CPT 52352; principal; 2023-01-14 14:30)
DX: N13.2 Hydronephrosis with renal and ureteral calculous obstruction (principal); R73.9 Hyperglycemia, unspecified; I10 Essential (primary) hypertension; G47.33 Obstructive sleep apnea (adult) (pediatric); D72.829 Elevated white blood cell count, unspecified; K57.30 Diverticulosis of large intestine without perforation or abscess without bleeding; N28.1 Cyst of kidney, acquired; E66.01 Morbid (severe) obesity due to excess calories; Z68.41 Body mass index [BMI] 40.0-44.9, adult; Z90.710 Acquired absence of both cervix and uterus; Z90.49 Acquired absence of other specified parts of digestive tract; Z79.899 Other long term (current) drug therapy
CPT/HCPCS: 52332; 36415; 74177; 74420; 80048; 80053; 81001; 83036; 83605; 83690; 83735; 85025; 85027; 87086; 96361; 96365; 96372; 96375; 99285; A9270; C1758; C1769; C2617; G0378; J0500; J0696; J1100; J1885; J2250; J2270; J2405; J2704; J7030; J7120; Q9966; Q9967

== ENCOUNTER 2023-01-20 10:24 | Outpatient (CLI) | payer OTHER, SELFPAY ==
--- NOTE | 2023-01-20 12:53 | ECG_ITS ---
Measurements Intervals [place] Rate: 74 P: 36 TX: 145 QRS: 22 QRSD: 97 T: 36 QT: 387 QTc: 432 Interpretive Statements SINUS RHYTHM WITHIN NORMAL LIMITS NO PREVIOUS ECG AVAILABLE FOR COMPARISON Electronically Signed On 01-20-2023 13:11:56 CDT by Jarrett Shah M.D.
[2023-01-20 13:34] LABS: Prothrombin Time 13.2 Seconds (11.1-14.7)
[2023-01-20 13:35] LABS: Partial Thromboplastin Time 29.9 SECONDS (22.3-36.8)
== END 2023-01-20 10:25 | disposition home or self-care (01) ==
PROVIDERS: Visit Provider Urology
DX: N20.1 Calculus of ureter (principal); I10 Essential (primary) hypertension; Z01.818 Encounter for other preprocedural examination
CPT/HCPCS: 36415; 85610; 85730; 93005

== ENCOUNTER 2023-01-27 01:54 | Day surgery (SDC) | payer OTHER, SELFPAY ==
[2023-01-19 11:28] VITALS: BMI 42.9
--- NOTE | 2023-01-19 11:35 | PC.NURSE ---
Report to the Outpatient Waiting Room, entrance under the green pavilion located off [facility], at time 6:00 on date 01/27/23. Planned Procedure Time: 7:30. Time changes happen often and if your time is changed the preop area will call you the afternoon before. - You and your visitor will be asked to self-screen and do not enter if you have any COVID symptoms. - A mask is optional within the hospital at this time. Patients may have clear liquids (water, carbonated beverages, clear teas, apple juice) until 3 hours prior to surgery (4:30) with a maximum of 20 ounces. - No food from midnight until time of surgery Take the following medications with a SIP of water the morning of surgery: ANTIBIOTIC (IF STILL TAKING) DO NOT STOP ANY OF YOUR OTHER PRESCRIPTION MEDICATIONS PRIOR TO SURGERY ?EXCEPT THE FOLLOWING Medications to discontinue per physician: N/A Date to take last dose: N/A Please no make-up, nail kinyarwanda, hairspray, perfume, deodorant, or body powder the day of surgery. No jewelry (including any body piercings) or valuables the day of surgery, leave them at home. Please take a shower or bath the night before, or the morning of, surgery with an antibacterial soap. Wear comfortable, loose fitting clothing. - Jewelry must be removed prior to entering the operating room. Rings and piercings that are not removed may be cut off. - The hospital will not accept responsibility for valuables. - Please leave all valuables, including medications, at home the day of surgery. If you are going home after surgery, a licensed trailer tank truck driver must drive you home. - NO public transportation without another adult if you receive anesthesia. - We recommend that an adult stay with you for 24 hours following discharge. - We also recommend that you do not drive, make important decision, drink alcoholic beverages, or take any drugs that were not prescribed by your health care provider for at least 24 hours after your discharge time. Follow any additional instructions given to you from your surgeon. If you or anyone in your household have experienced Covid symptoms in the past week, please notify your surgeon or the nurse liaison at the phone number below for possible testing. Telephone instructions given to PT - KRIS BARRETT and asked if any additional questions and then verbalized understanding. Patient advised to call surgeon office or pre surgery nurse liaison [phone] if any additional questions.
[2023-01-27] VITALS (9 sets, daily range): BP systolic 91–152; BP diastolic 50–98; PULSE 95–106; RESP 16–20; TEMP 36.1–36.8; O2SAT 94–100; BMI 42.6
--- NOTE | ~2023-01-27 | XR_ITS ---
Supine and upright views of the abdomen Clinical history: Lithotripsy COMPARISON: 02/13/2000 and Findings: Bowel gas pattern is nonspecific. No evidence for obstruction or free air. Left ureteral st ent is in place. Suspected 3 mm stone present at the mid left ureter. Probable calcified pelvic phleb oliths. Cholecystectomy clips present. Osseous structures are intact. Impression: Left ureteral stent with probable 3 mm mid left ureteral stone. Reviewed, dictated and finalized at [facility]. Impression: Left ureteral stent with probable 3 mm mid left ureteral stone.
--- NOTE | ~2023-01-27 | CT_ITS ---
Non-contrast CT scan of the Abdomen and Pelvis Clinical indication: Left renal stone Technique: 2.5 mm axial scans were obtained through the abdomen and pelvis without intravenous or or al contrast. Dose reduction technique was used on this scan by utilizing automated exposure control a nd iterative reconstruction technique. The dose-length product (DLP) was 930.81 mGy-cm. COMPARISON: 01/14/2023 Findings: Images through the lung bases reveal no abnormalities. Left ureteral stent in place. There is a 2 mm stone at the left mid ureter adjacent to the stent (axi al image 115). There are additional punctate stones within the left kidney itself. No hydronephrosis. Minimal left hydronephrosis present. No definite right renal or right ureteral stone. The liver, spleen, pancreas, and adrenals appear normal. Cholecystectomy clips are present. There is no aortic aneurysm. There is no evidence of bowel obstruction. No evidence for appendicitis. Images through the pelvis were performed. There is no evidence of ascites or lymphadenopathy. Urinary bladder unremarkable. No adnexal mass evident. Impression: 2 mm mid left ureteral stone, with left ureteral stent in place. Additional punctate nonobstructing left renal stones. Minimal left hydronephrosis. Reviewed, dictated and finalized at location . Impression: 2 mm mid left ureteral stone, with left ureteral stent in place. Additional punctate nonobstructing left renal stones. Minimal left hydronephrosis.
[2023-01-27] MEDS: LACTATED RINGERS 1,000 ML 30 ML IV CONT (06:25)
--- NOTE | 2023-01-27 07:14 | WPDANESEPPF ---
Anes - Initial Pre Proc Eval Procedure: Operation Date: 01/27/23 07:30 Proposed Procedures p Left Extracorporeal Shock Wave Lithotripsy, Possible Left Stent Removal - Alfredo Ferro MD Date/Time: 01/27/23 07:14 Surgeon: Alfredo Ferro MD Pre Op Diagnosis: left ureteral stone Patient Data Age: 43 Gender: F Height: 1.63 m Weight: 112.7 kg Last Vital Signs Temp 36.8 C 01/27/23 06:10 Pulse 106 H 01/27/23 06:10 Resp 16 01/27/23 06:10 BP 152/94 H 01/27/23 06:10 Pulse Ox 98 01/27/23 06:10 O2 Del Method Room Air 01/27/23 06:10 Allergies Allergy/AdvReac Type Severity Reaction Status Date / Time No Known Allergies Allergy Verified 01/27/23 06:09 Home Medications Medication Instructions Recorded Confirmed Type dicyclomine 20 mg tablet 20 mg PO QID #20 tabs 01/12/23 01/19/23 Rx ondansetron HCl 4 mg tablet 4 mg PO Q4H 3 doses #20 tabs 01/12/23 01/19/23 Rx nitrofurantoin 100 mg PO Q12H 4 days #8 caps 01/15/23 01/19/23 Rx monohydrate/macrocrystals 100 mg capsule (Macrobid) Patient hx anesthesia problems: none Family hx anesthesia problems: other (father slow to awaken) Results Review: All pre-operative results and documents have been reviewed as part of the pre-operative evaluation. [facility] Past Medical History Medical History Hypertension Kidney stones Obstructive sleep apnea Surgical History Surgical History History of section History of hemorrhoidectomy History of hysterectomy History of laparoscopic cholecystectomy Family History Family History Other Family history non-contributory Social History Social History Social History: Surrogate medical decision maker: Rowdy Red, father. Code status: Full code. Smoking status: Never smoker Second hand tobacco smoke exposure: No Alcohol intake: never Substance use: never Substance use type: does not use Lack of Transportation: No Lack of Food: Never True Current Housing: I Have Housing Concerned About Future Housing: No Difficulty Paying Gas/Electric Bills: No Difficulty Paying for Meds: No Currently Unemployed: No Education: Decline to Answer Difficulty w/ Childcare or Family Care: No Living arrangements: with family Spiritual care concerns: No Anes - Eval Final PreProcedure Day of Procedure 01/27/23 07:14 Patient weight: morbidly obese Heart: regular rate and rhythm Lungs: clear to auscultation Airway: Mallampati scale class II Neurological: alert and oriented Last oral intake: >/= 8 hours ASA classification: III Emergent: no Anesthetic plan: proceed Anesthesia type and monitoring: general LMA and standard monitoring Results Review: All pre-operative results and documents have been reviewed as part of the pre-operative evaluation. Informed Consent: The patient's anesthetic plan and its attendant risks and benefits were discussed with the patient/family/POA. Questions were solicited and answers provided to the satisfaction of the patient/family/POA.
--- NOTE | 2023-01-27 08:26 | WPDHPUPDATE1 ---
History and Physical Update Update Date/Time: 01/27/23 08:26 History and Physical has been reviewed, including an updated exam of the patient. There are NO changes in the patient's condition. Risks, benefits, and alternatives have been discussed and questions answered. Patient agrees to proceed with procedure. Proceed with left ureteral eswl
--- NOTE | 2023-01-27 09:56 | W.PM.PROC2 ---
Procedure Note - Detailed Date of Procedure 01/27/23 Pre-op Diagnosis left ureteral stone Post-op Diagnosis Same Procedure Performed Lithotripsy of left ureteral calculus Surgeon Alfredo Ferro MD Anesthesia General Description of Procedure Patient was taken to the operative suite correctly identified. Once anesthesia was obtained the stone was localized in both planes. Three thousand shocks were given to the stone. Patient tolerated procedure well without any complications and was taken recovery stable condition. She will follow-up in 7-10 days with [facility]. This completes dictation. Please send a copy of this op note to my office Drains Yes Packing No Pathology None sent Complications No immediate complications Condition Stable Disposition PACU
[2023-01-27] MEDS: oxyCODONE HCL (*CRX) 5 MG TAB IR PO (11:40)
[2023-01-27] MEDS: fentaNYL CITRATE INJ (*CRX) 100 MCG/2 ML VIAL 25 MCG IV PUSH (11:56)
== END 2023-01-27 12:55 | disposition home or self-care (01) ==
PROVIDERS: Visit Provider Urology
PROC: (CPT 50590; principal; 2023-01-27 07:30)
DX: N20.1 Calculus of ureter (principal); I10 Essential (primary) hypertension; G47.33 Obstructive sleep apnea (adult) (pediatric); E66.01 Morbid (severe) obesity due to excess calories; Z68.41 Body mass index [BMI] 40.0-44.9, adult
CPT/HCPCS: 50590; 36415; 74018; 74176; 85610; 85730; 93005; A9270; J1100; J2250; J2405; J2704; J3010; J7120

== ENCOUNTER 2023-01-30 11:48 | Emergency (ER) | payer OTHER, SELFPAY ==
[2023-01-30] VITALS (23 sets, daily range): BP systolic 135–155; BP diastolic 68–92; PULSE 86–115; RESP 16–24; TEMP 36.4; O2SAT 94–100
--- NOTE | ~2023-01-30 | CT_ITS ---
EXAMINATION: CT abdomen pelvis wo con DATE: 01/30/2023 15:10 INDICATION: Left flank pain, recent lithotripsy TECHNIQUE: Computed tomography (CT) of the abdomen and pelvis was performed without intravenous contr ast. The dose-length product (DLP) was 1077.90 mGy-cm. Automated exposure control and iterative recon struction technique were employed. COMPARISON: 01/27/2023 FINDINGS: The lung bases are clear. The heart size is normal. There are changes of cholecystectomy. T he liver, spleen, pancreas, and right adrenal gland are unremarkable. A 9 mm mass of the left adrenal gland likely reflects an adenoma. There is a left internal ureteral stent in expected position. The previously described left mid ureteral stone adjacent to the urinary stent is no longer identified. T here is mild fat stranding surrounding the left ureter which may reflect recent manipulation. The rig ht kidney is unremarkable. No pathologically enlarged abdominal or pelvic lymph nodes are identified. No free intraperitoneal gas or evidence of bowel obstruction. There is mild lumbar spondylosis. IMPRESSION: 1. Left internal ureteral stent in expected position with interval treatment of the previously descri bed stone adjacent to the stent. Mild fat stranding surrounding the left ureter may reflect recent ma nipulation. Reviewed, dictated and finalized at location [facility]. IMPRESSION: 1. Left internal ureteral stent in expected position with interval treatment of the previously described stone adjacent to the stent. Mild fat stranding surro unding the left ureter may reflect recent manipulation.
[2023-01-30 12:48] LABS: Basophils Percent Auto 0.3 % (0.2-1.2); Eosinophils Absolute Auto 0.3 K/mm3 (0-0.3); Eosinophils Percent Auto 1.8 % (0-4.4); Hematocrit 42.9 % (37.0-47.0); Hemoglobin 14.3 g/dL (12.0-15.0); Immature Granulocyte Absolute 0.04 K/mm3 (0.00-0.031); Immature Granulocyte Percent A 0.3 % (0-0.5); Lymphocytes Absolute Auto 2.64 K/mm3 (0.9-3.2); Lymphocytes Percent Auto 18.5 % (18.3-44.2); Mean Corpuscular HGB Conc 33.3 g/dl (32-36); Mean Corpuscular Hemoglobin 29.8 pg (26-34); Mean Corpuscular Volume 89.4 fl (80-100); Mean Platelet Volume 10.4 fl (7.4-10.4); Monocytes Absolute Auto 0.8 K/mm3 (0.1-0.6); Monocytes Percent Auto 5.4 % (2.6-8.5); Neutrophils Absolute Auto 10.5 K/mm3 (1.3-6.7); Neutrophils Percent Auto 73.7 % (45.5-73.1); Platelet Count Result 353 k/mm3 (150-375); Red Cell Distribution Width 12.3 % (11.5-14.5); White Blood Count 14.3 K/mm3 (4.5-10.0)
[2023-01-30 12:55] LABS: Appearance Urine Turbid (Clear); Bacteria Urine 2+ /hpf; Bilirubin Urine 1+ (Negative); Blood Urine 2+ (Negative); Glucose Urine UA Negative (Negative); Ketones Urine Negative (Negative); Leukocyte Esterase Ur 2+ LEU/UL (Negative); Nitrate Urine Positive (Negative); Non Pathogenic Casts 0-2; Protein Urine 2+ mg/dL (Negative); RBC Urine >100 /hpf (0-2); Specific Grav Ur 1.019 (1.001-1.035); Squamous Epithelial Cell Urine Few /hpf (Few); Urobilinogen Urine 0.2 mg/dL (<2.0); WBC Urine 51-100 /hpf; pH Urine 5.5 (5.0-9.0)
[2023-01-30 12:56] LABS: Alanine Aminotransferase 25 U/L (6-35); Albumin Level 4.3 g/dL (3.5-5.1); Alkaline Phosphatase 106 U/L (38-126); Anion Gap 9 mmol/L (8-16); Aspartate Amino Transferase 25 U/L (14-36); Bilirubin,Total 0.7 mg/dL (0.2-1.3); Blood Urea Nitrogen 8 mg/dL (7-17); Calcium 9.3 mg/dL (8.4-10.2); Carbon Dioxide 23 mmol/L (22-30); Chloride 106 mmol/L (98-107); Estimated CRCL calculation 97 ml/min; Estimated Glomerular Filt Rate > 60; Glucose 101 mg/dL (65-110); Potassium 3.7 mmol/L (3.4-5.0); Sodium 138 mmol/L (137-145)
[2023-01-30 12:56] LABS: Need Manual Microscopic Reviewed
[2023-01-30 12:59] LABS: Color Urine Red (Yellow)
[2023-01-30 13:00] LABS: Add Urine Microscopic? YES
--- NOTE | 2023-01-30 14:53 | ED.FEMALEGU ---
HPI - Female Genitourinary General Chief complaint: Urogenital-Female Stated complaint: s/p lithotripsy/bleeding/pain Time Seen by Provider: 01/30/23 14:34 History of Present Illness HPI Narrative: Patient is a 43-year-old female presenting with left flank pain. Patient states that 3 days ago she had lithotripsy with a stent placement for a ureteral stone. States that she was doing pretty well over the weekend but today she had sudden worsening of her left flank and left lower quadrant pain. States that she has had blood in her urine since the procedure but it is much heavier now. Denies fevers, chest pain, shortness of breath, nausea or vomiting, diarrhea, dysuria. Related Data Allergies Allergy/AdvReac Type Severity Reaction Status Date / Time No Known Allergies Allergy Verified 01/31/23 11:28 Review of Systems Review of Systems: All systems reviewed & are unremarkable except as noted in HPI and below PMFSH Past Medical History Medical History Hypertension Kidney stones Obstructive sleep apnea Surgical History Surgical History History of section History of hemorrhoidectomy History of hysterectomy History of laparoscopic cholecystectomy Family History Family History Other Family history non-contributory Social History Social History Social History: Surrogate medical decision maker: Rowdy Red, father. Code status: Full code. Smoking status: Never smoker Second hand tobacco smoke exposure: No Alcohol intake: never Substance use: never Substance use type: does not use Lack of Transportation: No Lack of Food: Never True Current Housing: I Have Housing Concerned About Future Housing: No Difficulty Paying Gas/Electric Bills: No Difficulty Paying for Meds: No Currently Unemployed: No Education: Associate Degree Difficulty w/ Childcare or Family Care: No Living arrangements: with family Spiritual care concerns: No Exam Narrative: GENERAL: Tearful secondary to pain, pleasant and cooperative HEAD: Normocephalic, atraumatic. EYES: PERRLA and EOMI. ENT: Nares clear, no rhinorrhea or epistaxis. Mucous membranes moist. NECK: Supple. CHEST: No respiratory distress. HEART: Regular rate and rhythm ABDOMEN: Soft, +LLQ tenderness, no significant CVA tenderness EXTREMITIES: Normal range of motion. No edema. SKIN: Warm, dry, no rash. NEURO: No focal deficits. Alert and oriented x3. PSYCH: Normal mood and affect. Course Vital Signs Vital signs: Vital Signs Temperature 97.5 F L 01/30/23 11:57 Pulse Rate 115 H 01/30/23 11:57 Respiratory Rate 16 01/30/23 11:57 Blood Pressure 153/91 H 01/30/23 11:57 Pulse Oximetry 100 01/30/23 11:57 Oxygen Delivery Room Air 01/30/23 11:57 Temperature 97.5 F L 01/30/23 11:57 Pulse Rate 95 01/30/23 18:16 Respiratory Rate 22 H 01/30/23 18:16 Blood Pressure 144/92 H 01/30/23 18:16 Pulse Oximetry 96 01/30/23 18:16 Oxygen Delivery Room Air 01/30/23 11:57 MDM - Female Genitourinary MDM Narrative Medical decision making narrative: Patient is a 43-year-old female presenting with left flank pain and worsening hematuria in the setting of recent lithotripsy and ureteral stent placement. Exam remarkable for the above. Plan for blood work, pain control, CT abdomen pelvis. CT abdomen pelvis shows the left ureteral stent is in the appropriate place. Blood work is unchanged from prior. UA does have positive nitrates. She is currently on Bactrim. I spoke with urology who feels comfortable with her going home. I will extend her Bactrim coverage and send in for a short course of Vicodin as the tramadol is not adequate for pain control. She already has an appointment with [facility]
[2023-01-30] MEDS: HYDROmorphone HCL INJ (*CRX) 1 MG/ML SYR IV PUSH (15:27)
[2023-01-30] MEDS: SODIUM CHLORIDE 0.9% IV 1,000 ML 999 ML IV CONT (15:27)
== END 2023-01-30 18:46 | disposition home or self-care (01) ==
PROVIDERS: Emergency Medicine; Emergency Provider Emergency Medicine; PCP Nurse Practitioner Family
DX: R10.32 Left lower quadrant pain (principal); R82.998 Other abnormal findings in urine; Z96.0 Presence of urogenital implants; I10 Essential (primary) hypertension; G47.33 Obstructive sleep apnea (adult) (pediatric); Z87.442 Personal history of urinary calculi; Z90.49 Acquired absence of other specified parts of digestive tract; Z90.710 Acquired absence of both cervix and uterus
CPT/HCPCS: 36415; 74176; 80053; 81001; 85025; 87086; 87088; 96361; 96365; 96375; 99284; J0696; J1170; J7030

== ENCOUNTER 2023-02-08 11:43 | Outpatient (CLI) | payer OTHER, SELFPAY ==
--- NOTE | ~2023-02-08 | XR_ITS ---
XR abdomen/[facility] 1V 02/08/2023 12:12 Indication: Kidney stones Procedure: [facility] Comparison: 01/27/2023 Findings: There is a left internal ureteral stent present. There are cholecystectomy clips. There are pelvic phleboliths. No definite renal stones. Nonobstructive bowel gas pattern. No acute osseous abn ormality. Impression: 1: No acute abdominal abnormality. Reviewed, dictated and finalized at location [facility]. Impression: 1: No acute abdominal abnormality.
== END 2023-02-08 11:44 | disposition home or self-care (01) ==
PROVIDERS: PCP Nurse Practitioner Family; Visit Provider Urology
DX: N20.0 Calculus of kidney (principal)
CPT/HCPCS: 74018

== ENCOUNTER 2023-03-07 15:49 | Outpatient (CLI) | payer OTHER, SELFPAY ==
--- NOTE | ~2023-03-07 | CT_ITS ---
EXAMINATION: CT brain wo con INDICATION: Head injury COMPARISON: None TECHNIQUE: Standard unenhanced head CT. The dose-length product (DLP) was 605.33 mGy-cm. The mA was a djusted according to patient size. Iterative reconstruction technique was employed. FINDINGS: No intracranial hemorrhage, acute infarction, or abnormal mass lesion. The ventricles are n ormal. No abnormal mass effect or midline shift. The houser-white matter differentiation is normal. The basal cisterns are patent. There is a right parietal scalp hematoma. The orbits are normal. The para nasal sinuses, mastoids and calvarium are normal. IMPRESSION: 1. No acute intracranial abnormality. Reviewed, dictated and finalized at location [facility].
== END 2023-03-07 15:50 | disposition home or self-care (01) ==
PROVIDERS: PCP Nurse Practitioner Family; Visit Provider Nurse Practitioner Family
DX: R41.0 Disorientation, unspecified (principal); S09.90XA Unspecified injury of head, initial encounter; X58.XXXA Exposure to other specified factors, initial encounter
CPT/HCPCS: 70450

== ENCOUNTER 2023-09-11 16:31 | Outpatient (CLI) | payer OTHER, SELFPAY ==
[2023-09-11 17:09] LABS: Alanine Aminotransferase 24 U/L (6-35); Albumin Level 4.5 g/dL (3.5-5.1); Alkaline Phosphatase 101 U/L (38-126); Anion Gap 4 mmol/L (8-16); Aspartate Amino Transferase 27 U/L (14-36); Bilirubin,Total 0.8 mg/dL (0.2-1.3); Blood Urea Nitrogen 10 mg/dL (7-17); Calcium 9.5 mg/dL (8.4-10.2); Carbon Dioxide 30 mmol/L (22-30); Chloride 105 mmol/L (98-107); Estimated Glomerular Filt Rate > 60; Glucose 99 mg/dL (65-110); Potassium 3.9 mmol/L (3.4-5.0); Sodium 139 mmol/L (137-145)
[2023-09-11 17:40] LABS: Thyroid Stimulating Hormone 0.764 uIU/mL (0.465-4.680)
[2023-09-11 19:10] LABS: Basophils Percent Auto 0.3 % (0.2-1.2); Eosinophils Absolute Auto 0.2 K/mm3 (0-0.3); Eosinophils Percent Auto 1.8 % (0-4.4); Hematocrit 45.4 % (37.0-47.0); Hemoglobin 15.3 g/dL (12.0-15.0); Immature Granulocyte Absolute 0.05 K/mm3 (0.00-0.031); Immature Granulocyte Percent A 0.4 % (0-0.5); Lymphocytes Percent Auto 26.7 % (18.3-44.2); Mean Corpuscular HGB Conc 33.7 g/dl (32-36); Mean Corpuscular Hemoglobin 30.5 pg (26-34); Mean Corpuscular Volume 90.6 fl (80-100); Mean Platelet Volume 11.2 fl (7.4-10.4); Monocytes Absolute Auto 0.7 K/mm3 (0.1-0.6); Monocytes Percent Auto 5.6 % (2.6-8.5); Neutrophils Absolute Auto 7.8 K/mm3 (1.3-6.7); Neutrophils Percent Auto 65.2 % (45.5-73.1); Platelet Count Result 296 k/mm3 (150-375); Red Blood Count 5.01 M/mm3 (4.2-5.4); Red Cell Distribution Width 12.2 % (11.5-14.5)
== END 2023-09-11 16:32 | disposition home or self-care (01) ==
LOC: ANHLAB 16:32
PROVIDERS: PCP Nurse Practitioner Family; Visit Provider Family Medicine Adolescent Medicine
DX: R41.0 Disorientation, unspecified (principal); I10 Essential (primary) hypertension; R53.83 Other fatigue
CPT/HCPCS: 36415; 80053; 84443; 85025

== ENCOUNTER 2023-09-26 18:02 | Emergency (ER) | payer OTHER, SELFPAY ==
[2023-09-26 18:09] VITALS: BP 175/99; PULSE 96; RESP 16; TEMP 37.1; O2SAT 98
--- NOTE | 2023-09-26 19:07 | ED.HA ---
HPI - Headache General Chief Complaint: Headache Stated Complaint: headache x2 days Time Seen by Provider: 09/26/23 18:19 Source: patient Mode of arrival: ambulatory Limitations: no limitations History of Present Illness HPI Narrative: Patient is a 43 y/o female who presents to the ED with report of headache and right eye possible foreign body. Patient reports she has had intermittent frontal headache for the last 2 days. She notes a history of migraines when she was younger and frequent tension headaches. She has not taken anything for her headache over the last 2 days. She also reports having some mild irritation in her right eye since yesterday. States the eye felt dry. She then noticed a possible foreign body to her right medial eye conjunctiva today. She then prompted here. She states she is mostly just worried about her eye, she is not concerned about the headache. States she has very mild intermittent blurry vision in her right eye. Denies vision loss. Denies eye pain. Denies N/V, photophobia, phonophobia, fevers, focal weakness or numbness. Related Data Allergies Allergy/AdvReac Type Severity Reaction Status Date / Time No Known Allergies Allergy Verified 09/11/23 15:30 Review of Systems Review of Systems: CONSTITUTIONAL: Denies fever, chills, or sweats. EENT: See HPI CARDIOVASCULAR: Denies chest pain, palpitations, or edema. RESPIRATORY: Denies cough or dyspnea. GASTROINTESTINAL: Denies abdominal pain, nausea, vomiting. NEUROLOGIC: See HPI. All systems reviewed & are unremarkable except as noted in HPI and below PMFSH Past Medical History Medical History Hypertension Kidney stones Obstructive sleep apnea Surgical History Surgical History History of section History of hemorrhoidectomy History of hysterectomy History of laparoscopic cholecystectomy Family History Family History Other Family history non-contributory Social History Social History Social History: Surrogate medical decision maker: Rowdy Red, father. Code status: Full code. Smoking status: Never smoker Second hand tobacco smoke exposure: No Alcohol intake: never Substance use: never Substance use type: does not use Lack of Transportation: No Lack of Food: Never True Current Housing: I Have Housing Concerned About Future Housing: No Difficulty Paying Gas/Electric Bills: No Difficulty Paying for Meds: No Currently Unemployed: No Education: Associate Degree Difficulty w/ Childcare or Family Care: No Living arrangements: with family Spiritual care concerns: No Exam Narrative: GENERAL: Well appearing, morbidly obese with BMI of 48.0, non-toxic, in no acute distress. HEAD: Normocephalic, atraumatic. EYE: PERRL/EOMI, very mild conjunctival injection to R eye. L eye conjunctiva clear. No nystagmus. Small area of excess tissue, light pink in color, to medial conjunctiva of R eye, attached to conjunctiva, mildly uncomfortable with palpation, does not cross cornea. Globe is intact. No ts.. RESPIRATORY: Airway patent, respirations nonlabored. CARDIOVASCULAR: Regular rate and rhythm without murmurs, rubs, or gallops. MUSCULOSKELETAL: Moves all extremities. No gross deformities. SKIN: Warm, dry, normal color. NEURO: A&O X3. Speech clear. Cranial nerves II-XII grossly intact. Steady gait. No ataxic movements. No focal defici PSYCHIATRIC: Mildly anxious. Normal interaction. Course Vital Signs Vital signs: Vital Signs Temperature 98.8 F 09/26/23 18:09 Pulse Rate 96 09/26/23 18:09 Respiratory Rate 16 09/26/23 18:09 Blood Pressure 175/99 H 09/26/23 18:09 Pulse Oximetry 98 09/26/23 18:09 Oxygen Delivery Room Air 09/26/23 18:09
[2023-09-26] MEDS: ACETAMINOPHEN 500 MG TABLET 1000 MG PO (19:26)
[2023-09-26] MEDS: KETOROLAC 30 MG/ML VIAL (*BKC) IV PUSH (19:27)
[2023-09-26] MEDS: ONDANSETRON INJ 4 MG/2 ML VIAL IV PUSH (19:27)
[2023-09-26] MEDS: SODIUM CHLORIDE 0.9% IV 1,000 ML 999 ML IV CONT (19:28)
[2023-09-26] MEDS: ERYTHROMYCIN OPHTH OINTMENT 1 GM TUBE 1 APPLIC RIGHT EYE (19:34)
[2023-09-26 21:16] VITALS: BP 165/81; PULSE 82; RESP 13; O2SAT 97
--- NOTE | 2023-09-26 21:17 | PC.NURSE ---
Visual acuity completed on pt. Pt reports she should wear glasses but has not been able to afford a new pair.
== END 2023-09-26 21:34 | disposition home or self-care (01) ==
LOC: ANHED 19:35
PROVIDERS: Emergency Provider Physician Assistant; PCP Family Medicine Adolescent Medicine
DX: R51.9 Headache, unspecified (principal); S00.211A Abrasion of right eyelid and periocular area, initial encounter; I10 Essential (primary) hypertension; Z87.442 Personal history of urinary calculi; G47.30 Sleep apnea, unspecified; X58.XXXA Exposure to other specified factors, initial encounter
CPT/HCPCS: 96361; 96374; 96375; 99284; A9270; J1885; J2405; J7030

== ENCOUNTER 2023-10-02 14:18 | Emergency (ER) | payer OTHER, SELFPAY | END 2023-10-02 16:07 | disposition left against medical advice (07) | LOC: ANHED 14:51 | PROVIDERS: PCP Family Medicine Adolescent Medicine | DX: I10 Essential (primary) hypertension (principal) | CPT/HCPCS: 99199 ==